=== PATIENT | female | born 1995 | race Caucasian/White ===

== ENCOUNTER 2018-01-12 17:02 | Emergency (ER) | payer OTHER ==
[~2018-01-12] VITALS: Ht 170.2 cm; Wt 77.1 kg
[2018-01-12 17:10] VITALS: BP_SYST 130
[2018-01-12 18:37] VITALS: BP_SYST 132
== END 2018-01-12 18:37 | disposition home or self-care (01) ==
LOC: SED 17:02
DX: S89.91XA Unspecified injury of right lower leg, initial encounter (principal); R03.0 Elevated blood-pressure reading, without diagnosis of hypertension; W01.0XXA Fall on same level from slipping, tripping and stumbling without subsequent striking against object, initial encounter; Y93.89 Activity, other specified; Y92.69 Other specified industrial and construction area as the place of occurrence of the external cause; Y99.8 Other external cause status
CPT/HCPCS: 73564; 81025; 99284

== ENCOUNTER 2020-06-30 08:38 | Emergency (ER) | payer BC, OTHER ==
[~2020-06-30] VITALS: Ht 172.7 cm; Wt 77.1 kg
[2020-06-30 08:38] VITALS: BP_SYST 136
[2020-06-30] MEDS ORDERED: LIDOCAINE 2%, 20 ML MDV INJ ONE (10:30)
[2020-06-30] MEDS ORDERED: AMOXICILLIN/CLAVULANATE POTASSIUM 500 MG TABLET PO ONE (11:30)
[2020-06-30 11:36] VITALS: BP_SYST 136
== END 2020-06-30 11:37 | disposition home or self-care (01) ==
LOC: SED 08:38
DX: L02.01 Cutaneous abscess of face (principal)
CPT/HCPCS: 10060; 87070; 87075; 99284; J2001